=== PATIENT | male | born 1940 | race Caucasian/White ===

== ENCOUNTER 2022-11-05 09:24 | Observation (INO) | payer MEDICARE ==
[2022-11-05 09:49] VITALS: BMI 37.3
[2022-11-05] MEDS ORDERED: Acetaminophen 325 MG TAB PO PRN (10:21)
[2022-11-05] MEDS ORDERED: Ondansetron PF 4 MG/2 ML Vial IVP PRN (10:21)
[2022-11-05 12:05] LABS: Magnesium 1.9 mg/dL (1.6-2.6); Phosphorus 2.7 mg/dL (2.3-4.7)
[2022-11-05] MEDS ORDERED: Iopamidol 370 76% 100 ML VIAL ONE (12:13)
[2022-11-05 14:48] LABS: SARS-CoV-2 NAA Rapid Test DETECTED (NotDetected)
[2022-11-06] MEDS ORDERED: Vitamin E 400 UNITS CAP PO SCH (09:00)
[2022-11-06] MEDS ORDERED: Cholecalciferol (Vitamin D3) 400 UNITS TAB PO SCH (09:00)
[2022-11-06] MEDS ORDERED: Losartan 25 MG TAB PO SCH (09:00)
[2022-11-06] MEDS ORDERED: Fish Oil 1,000 MG CAP PO SCH (09:00)
[2022-11-06] MEDS ORDERED: Multivitamin W/ Minerals 1 TAB PO SCH (09:00)
[2022-11-06] MEDS ORDERED: CO Q-10 CAPSULE 50 MG PO SCH (09:00)
[2022-11-06] MEDS ORDERED: Ascorbic Acid 500 mg Chewable Tablet PO SCH (09:00)
[2022-11-06 12:29] VITALS: TEMP 98.3
[2022-11-06 15:30] VITALS: BP 137/75
[2022-11-06] MEDS ORDERED: Montelukast Sodium 10 mg Tablet PO SCH (21:00)
[2022-11-06] MEDS ORDERED: Melatonin 3 MG TAB PO SCH (21:00)
[2022-11-06] MEDS ORDERED: Atorvastatin Calcium 10 MG TAB PO SCH (21:00)
== END 2022-11-06 14:20 | disposition short-term general hospital (02) ==
LOC: CSHTELE 09:24 → INTOOBSV 09:24
PROVIDERS: ADMIT Internal Medicine; ATTEND Internal Medicine
DX: R55 Syncope and collapse (principal); I25.10 Atherosclerotic heart disease of native coronary artery without angina pectoris; G47.33 Obstructive sleep apnea (adult) (pediatric); I10 Essential (primary) hypertension; E78.5 Hyperlipidemia, unspecified; E11.9 Type 2 diabetes mellitus without complications; N40.0 Benign prostatic hyperplasia without lower urinary tract symptoms; E66.9 Obesity, unspecified; Z68.37 Body mass index [BMI] 37.0-37.9, adult; F17.200 Nicotine dependence, unspecified, uncomplicated; Z79.82 Long term (current) use of aspirin; Z79.899 Other long term (current) drug therapy; Z79.84 Long term (current) use of oral hypoglycemic drugs; Z86.711 Personal history of pulmonary embolism; Z86.718 Personal history of other venous thrombosis and embolism
CPT/HCPCS: 0240U; 71275; 83735; 84100; 93880; 97530; G0378 ×2; G0379; 36415; Q9967

== ENCOUNTER 2022-11-15 11:24 | Outpatient (CLI) | payer MEDICARE | END 2022-11-15 11:25 | disposition home or self-care (01) | LOC: CSHCT 11:24 | PROVIDERS: ATTEND Surgery | DX: S06.5XAD Traumatic subdural hemorrhage with loss of consciousness status unknown, subsequent encounter (principal) | CPT/HCPCS: 70450 ==